=== PATIENT | female | born 1945 | race Caucasian/White ===

== ENCOUNTER → 2016-09-16 | Outpatient (CLI) | payer MEDICARE, MEDICAID ==
[~2016-09-16] MED LIST: ASP81TEC PO; ASPI325T4 PO; ATR20T PO; CALCIUM; GLIM2TAB PO; GLYB5TAB6 PO; GLYBURIDE; HYDR-757 PO; LECITHIN; LIPITOR; LISI10TA PO; METF500T8 PO; METFORMIN; METO25TA2 PO; MTF500T PO; ONDAN4ODT SL; ROSU10TA12 PO
--- NOTE | 2016-09-16 13:54 | Diagnostic Imaging Report ---
EXAMINATION: Two views of the right hip. INDICATION: Right hip pain. FINDINGS: There is subchondral sclerosis seen and mild joint space narrowing in the right hip, compatible with osteoarthritis. No fracture or dislocation. No radiopaque foreign body. Mild sclerotic lesions in the right SI joint are also seen. IMPRESSION: Mild right hip osteoarthritis. Dictated by: Dictated on workstation # [id number]
== END ==
LOC: RAD 10:36
PROVIDERS: ATTEND Family Medicine
DX: M25.551 Pain in right hip (principal); M16.11 Unilateral primary osteoarthritis, right hip
CPT/HCPCS: 73502

== ENCOUNTER → 2016-12-16 | Outpatient (CLI) | payer MEDICARE, MEDICAID ==
[~2016-12-16] MED LIST changes: +ASPI-808 PO; +ATOR10TA66 PO; +CATHETER FLUSH 10 ML SYR IV PRN; +DICL75TA2 PO; +IOHEXOL 350 MG/ML 100 ML (OMNIPAQUE 350) VIAL IV ONE; +LISI-552 PO; +LISI10TA2 PO; +METF500T4 PO; +METO-333 PO; +NS 100 ML (IVPB) BAG IV ONE; +OMEP40CA36 PO; +ONDA4TAB11 PO; +SUCR1TAB36 PO; +TRAM50TA2 PO
[2016-12-16 09:53] LABS: BLOOD UREA NITROGEN 15 MG/DL (7-18); BUN/CREATININE RATIO 17; CREATININE SERUM 0.88 MG/DL (0.60-1.30); GFR ESTIMATED > 60
--- NOTE | 2016-12-16 20:32 | Diagnostic Imaging Report ---
INDICATION: History of carotid stenosis and endarterectomy. TECHNIQUE: Post IV contrast-enhanced CT angio neck performed with multiplanar and 3D reconstructions. COMPARISON: None. FINDINGS: The branching pattern of the great vessels appear normal. The thoracic aortic arch is patent and nonaneurysmal. There is very mild eccentric calcified plaque at the innominate artery without luminal stenosis. The subclavians appeared patent and unremarkable, bilaterally. The bilateral vertebrals are patent and nonfocal, the left dominant vessel the right somewhat small but nonfocal. The origin of the right internal carotid artery is 4.8 cm diameter, however, just immediately beyond its origin it focally narrows to 2.1 mm transverse diameter with a stenosis of >70%. The remaining right cervical internal carotid is very tortuous but otherwise nonfocal. On the left is mixed soft and hard plaque at the carotid bulb and bifurcation. The left cervical internal carotid reveals no evidence for hemodynamically significant degree of stenosis. Acquisitions were carried out through the [place] with no focal intracranial occlusion or hemodynamically significant stenosis. IMPRESSION: 1. Likely 70% stenosis focally proximal right ICA just beyond its origin left-sided carotid plaque mild and without stenosis both cervical vertebrals are very tortuous but otherwise negative. The vertebrals are unremarkable. 2. Not mentioned above, there are multiple bilateral thyroid nodules on the right, the largest nodule or aggregate of nodules is 1.7 cm. Masses measuring larger on ultrasound of 2012 of the thyroid were noted. Dictated by: Dictated on workstation # [id number]
== END ==
LOC: RAD 09:14
PROVIDERS: ATTEND Internal Medicine Cardiovascular Disease
DX: I65.21 Occlusion and stenosis of right carotid artery (principal); E04.2 Nontoxic multinodular goiter
CPT/HCPCS: 36415; 70498; 82565; 84520

== ENCOUNTER → 2017-01-22 | Outpatient (CLI) | payer MEDICARE, MEDICAID ==
[~2017-01-22] MED LIST changes: -ASPI-808 PO; -ATOR10TA66 PO; -CATHETER FLUSH 10 ML SYR IV PRN; -DICL75TA2 PO; -IOHEXOL 350 MG/ML 100 ML (OMNIPAQUE 350) VIAL IV ONE; -LISI-552 PO; -LISI10TA2 PO; -METF500T4 PO; -METO-333 PO; -NS 100 ML (IVPB) BAG IV ONE; -OMEP40CA36 PO; -ONDA4TAB11 PO; -SUCR1TAB36 PO; -TRAM50TA2 PO
--- NOTE | 2017-01-25 13:48 | Diagnostic Imaging Report ---
EXAMINATION: Bilateral screening mammogram 2D views with tomosynthesis. The current study was also evaluated with a Computer Aided Detection (CAD) system. INDICATION: Screening. PERSONAL HISTORY: No current complaints stated on the questionnaire. COMPARISON: 01/21/2016. FINDINGS: The breasts are composed of scattered fibroglandular densities. There are benign-appearing calcifications seen. Allowing for technique and positional differences, no suspicious change is seen. IMPRESSION: No significant change. ACR BI-RADS Category 2: Benign findings. Result letter will be mailed to the patient. Note: At least 10% of breast cancer is not imaged by mammography. Dictated by: Dictated on workstation # [id number]
== END ==
LOC: RAD 09:55
PROVIDERS: ATTEND Family Medicine
DX: Z12.31 Encounter for screening mammogram for malignant neoplasm of breast (principal)
CPT/HCPCS: 77067

== ENCOUNTER 2017-02-16 05:37 | Outpatient (CLI) | payer MEDICARE, MEDICAID ==
[~2017-02-16] VITALS: Ht 152.4 cm; Wt 66.7 kg
[~2017-02-16 05:37] MED LIST changes: +OMEP40CA36 PO; +ONDA4TAB11 PO; +SUCR1TAB36 PO
[2017-02-16] MEDS ORDERED: OMEP40CA36 PO (11:24)
[2017-02-16] MEDS ORDERED: DICL75TA2 PO (11:24)
[2017-02-16] MEDS ORDERED: SUCR1TAB36 PO (11:24)
[2017-02-16] MEDS ORDERED: LISI10TA2 PO (11:24)
[2017-02-16] MEDS ORDERED: LISI-552 PO (11:24)
[2017-02-16] MEDS ORDERED: METF500T4 PO (11:24)
[2017-02-16] MEDS ORDERED: TRAM50TA2 PO (11:24)
[2017-02-16] MEDS ORDERED: ASPI-808 PO (11:24)
[2017-02-16] MEDS ORDERED: ONDA4TAB11 PO (11:24)
[2017-02-16] MEDS ORDERED: ATOR10TA66 PO (11:24)
[2017-02-16] MEDS ORDERED: METO-333 PO (11:24)
[2017-02-16] MEDS ORDERED: GLIM2TAB PO (11:24)
== END 2017-02-16 11:26 ==
LOC: PREOP 05:37
PROVIDERS: ATTEND Surgery
DX: Z01.818 Encounter for other preprocedural examination (principal); R10.13 Epigastric pain

== ENCOUNTER 2017-02-22 12:11 | Day surgery (SDC) | payer MEDICARE, MEDICAID ==
[~2017-02-22] VITALS: Ht 152.4 cm; Wt 66.7 kg
[~2017-02-22 12:11] MED LIST changes: +ASPI-808 PO; +ATOR10TA66 PO; +DICL75TA2 PO; +LISI-552 PO; +LISI10TA2 PO; +METF500T4 PO; +METO-333 PO; +NS IV 500 ML 500 ML ONE; +TRAM50TA2 PO
[2017-02-22 12:29] VITALS: BP 180/71
[2017-02-22] MEDS ORDERED: MIDAZOLAM 2 MG/2 ML (VERSED) VIAL IVP PRN (13:15)
[2017-02-22] MEDS ORDERED: NS IV 500 ML 500 ML IV SCH (13:15)
--- NOTE | 2017-02-22 13:36 | Conscious Sedation/ASA ---
Conscious Sedation Pre-Proced Time Reviewed: 13:36 ASA Class: 2 Airway Mallampati Classification: ([place] appropriate class) I. II. III, IV Lungs Heart ASA score ASA 1: a normal healthy patient ASA 2: a patient with a mild systemic disease (mid diabetes, controlled hypertension, obesity ASA 3: a patient with a severe systemic disease that limits activity (angina , COPD, prior Myocardial infarction) ASA 4: a patient with an incapacitating disease that is a constant threat to life (CHF, renal failure) ASA 5: a moribund patient not expected to survive 24 hrs. (ruptured aneurysm) ASA 6: a declared brain patient whose organs are being harvested. For emergent operations, add the letter E after the classification Grade 1 Sedation Plan: Discussed options with patient/fam Note The patient is an appropriate candidate to undergo the planned procedure, sedation, and anesthesia. The patient immediately re-assessed prior to indication. TIFFANY YOU MD Feb 22, 2017 1:36 pm
[2017-02-22] MEDS ORDERED: fentaNYL INJECTION 100 MCG/2 ML AMP ONE (14:01)
[2017-02-22] MEDS ORDERED: MIDAZOLAM 2 MG/2 ML (VERSED) VIAL ONE (14:01)
[2017-02-22] MEDS ORDERED: HURRICAINE EXT TUBE (BENZOCAINE) ONE (14:01)
[2017-02-22] MEDS: fentaNYL INJECTION 100 MCG/2 ML AMP IVP PRN ×2 (14:08→14:15)
--- NOTE | 2017-02-22 14:22 | Endo Procedure Record ---
Endo Procedure Report Date of Procedure Feb 22, 2017 Surgeon (s) TIFFANY YOU MD Post Procedure/Op Diagnosis chronic ulcer at the duodenal bulb Procedure Performed EGD with antral biopsy for H. pylori Description of Procedure Anesthesia Type: Conscious Sedation Specimen(s) collected/removed antral mucosa for H. pylori Description of the Procedure indication for procedure: This lady presented with acute epigastric pain and was found to have a sealed duodenal ulcer by CT scan. She returned today for endoscopic evaluation. Informed consent was obtained after reviewing the procedure in detail. Description of procedure: She was placed in left lateral decubitus position and her vital signs were monitored. Conscious sedation was achieved using Versed and fentanyl. The flexible gastroscope was introduced down the esophagus, past the stomach, into the proximal duodenum. Findings: Esophagus: Normal Stomach: Mild distal gastritis. Biopsy for H. pylori was obtained. Duodenal: Chronic ulcer about 5 mm in diameter with slough at the base, found that the bulb. Photodocumentation was obtained. She tolerated the procedure well and was taken back to the nursing area in a stable condition. Impression: Epigastric pain. Chronic duodenal ulcer. Helicobacter status pending. We will treat conservatively. Copies To: ALLI CASTILLO XAVIER M MD Feb 22, 2017 2:22 pm
--- NOTE | 2017-02-22 14:23 | Discharge Inst-Simple/Standard ---
Discharge Inst-Standard Discharge Medications New, Converted or Re-Newed RX: Other Patient Instructions/Follow Up Plan of Care/Instructions/FU: follow-up with her primary. To avoid nonsteroidals Activity as Tolerated: Yes Discharge Diet: No Restrictions TIFFANY YOU MD Feb 22, 2017 2:23 pm
[2017-02-22 14:30] VITALS: BP 144/70
[2017-02-22] MEDS ORDERED: HURRICAINE EXT TUBE (BENZOCAINE) XX ONE (14:45)
[2017-02-22 15:00] VITALS: BP 156/75
[2017-02-22 15:10] VITALS: BP 156/75
== END 2017-02-22 15:10 | disposition home or self-care (01) ==
LOC: ENDO 12:11
PROVIDERS: ATTEND Surgery
DX: K26.9 Duodenal ulcer, unspecified as acute or chronic, without hemorrhage or perforation (principal); K29.70 Gastritis, unspecified, without bleeding; I10 Essential (primary) hypertension; E78.2 Mixed hyperlipidemia; E04.1 Nontoxic single thyroid nodule; I65.23 Occlusion and stenosis of bilateral carotid arteries; E11.9 Type 2 diabetes mellitus without complications; Z82.49 Family history of ischemic heart disease and other diseases of the circulatory system; Z79.899 Other long term (current) drug therapy

== ENCOUNTER 2017-03-16 15:09 | Emergency (ER) | payer MEDICARE, MEDICAID ==
[~2017-03-16] VITALS: Ht 152.4 cm; Wt 67.6 kg
[~2017-03-16 15:09] MED LIST changes: -NS IV 500 ML 500 ML ONE
[2017-03-16] MEDS ORDERED: OXYMETAZOLINE (AFRIN) 0.05% NA 15 ML BTL ONE (15:36)
[2017-03-16] MEDS ORDERED: LECI12002 PO (15:36)
[2017-03-16] MEDS ORDERED: CALC-6 PO (15:36)
[2017-03-16] MEDS ORDERED: MULT-974 PO (15:36)
--- NOTE | 2017-03-16 16:37 | ED EENT ---
History of Present Illness General Chief Complaint: Nasal Problems Stated Complaint: NOSE BLEED Nursing Triage Note: PT REPORTS HAVING NOSEBLEED LAST EVENING AND ONE THIS AM. THEN THIS ONE THAT HAS NOT STOPPED DESPITE USING PRESSURE OR ICE. Source: patient Exam Limitations: no limitations History of Present Illness Time seen by provider: 15:20 Initial Comments This 71 year old woman presents with complaints of nose bleed last night and again today. Ice and pressure at home have not resolved the bleeding. She has some oozing active bleeding now. She is on full dose aspirin. Allergies and Home Medications Allergies Uncoded Allergies: EGGS (Allergy, Mild, 01/25/12) Home Medications Aspirin 325 Mg Tablet, 325 MG PO DAILY, (Reported) Atorvastatin Calcium 10 Mg Tablet, 10 MG PO HS, (Reported) Calcium Carbonate/Vitamin D3 1 Each Tablet, 1 EACH PO DAILY, (Reported) Glimepiride 2 Mg Tablet, 2 MG PO DAILY, (Reported) Lecithin 1,200 Mg Capsule, 1,200 MG PO DAILY, (Reported) Lisinopril 20 Mg Tablet, 20 MG PO DAILY, (Reported) Metformin HCl 500 Mg Tablet, 1,000 MG PO BID, (Reported) Metoprolol Tartrate 25 Mg Tablet, 25 MG PO BID, (Reported) Multivitamin 1 Each Tablet, 1 EACH PO DAILY, (Reported) Omeprazole 40 Mg Capsule.dr, 40 MG PO DAILY, (Reported) Ondansetron 4 Mg Tab.rapdis, 4 MG PO Q4H PRN for NAUSEA/VOMITING-1ST LINE, ( Reported) Sucralfate 1 Gm Tablet, 1 GM PO QID, (Reported) Tramadol HCl 50 Mg Tablet, 50 MG PO BID PRN for PAIN-MILD TO MODERATE, (Reported ) Review of Systems Constitutional: no symptoms reported Eyes: No Symptoms Reported Ears: No Symptoms Reported Nose: see HPI Mouth: no symptoms reported Throat: no symptoms reported Skin: no symptoms reported Neurological: No Symptoms Reported Hematologic/Lymphatic: See HPI Past Hipmdux-Vylwze-Nsbxgq Hx Patient Social History Alcohol Use: Denies Use Recreational Drug Use: No Smoking Status: Former Smoker Type Used: Cigarettes Former Smoker, Quit: Feb 16, 1969 2nd Hand Smoke Exposure: No Recent Foreign Travel: No Contact w/Someone Who Travel: No Recent Infectious Disease Expo: No Recent Hopitalizations: No Physical Abuse: No Sexual Abuse: No Mistreated: No Fear: No Immunizations Up To Date Tetanus Booster (TDap): More than 5yrs Date of Pneumonia Vaccine: Apr 05, 2011 Seasonal Allergies Seasonal Allergies: No Surgeries History of Surgeries: No Respiratory History of Respiratory Disorde: No Cardiovascular History of Cardiac Disorders: Yes Cardiac Disorders: High Cholesterol, Hypertension Neurological History of Neurological Disord: No Reproductive System : No Hx Reproductive Disorders: No Sexually Transmitted Disease: No HIV/AIDS: No Genitourinary History of Genitourinary Disor: No Gastrointestinal History of Gastrointestinal Di: Yes (EPIGASTRIC PAIN) Gastrointestinal Disorders: Gastroesophageal Reflux, Hiatal Hernia Musculoskeletal History of Musculoskeletal Dis: Yes Musculoskeletal Disorders: Arthritis Endocrine History of Endocrine Disorders: Yes Endocrine Disorders: Diabetes, 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 Hearing Impairment: Denies Cancer History of Cancer: No Psychosocial History of Psychiatric Problem: No Suicide Risk Score: 1 Integumentary History of Skin or Integumenta: No Blood Transfusions History of Blood Disorders: No Adverse Reaction to a Blood Tr: No Family Medical History Family Medial History: Arthritis G8 SISTER Diabetes mellitus G8 BROTHER FH: skin cancer 19 MOTHER FH: uterine cancer 19 MOTHER Respiratory disorder G8 SISTER Physical Exam Vital Signs Vital Sign - Last 12Hours 03/16/17 15:42 Temp 98.1 Pulse 83 Resp 18 B/P (MAP) 147/67 (93) Pulse Ox 95 O2 Delivery Room Air General Appearance: WD/WN, no apparent distress Nose: active bleeding (Slight oozing left nostril) Neck: normal inspection Cardiovascular: regular rate, rhythm, no edema, no murmur Respiratory: lungs clear, normal breath sounds, no respiratory distress Neurologic/Psychiatric: size stamper II-XII nml as tested, no motor/sensory deficits, alert, normal mood/affect, oriented x 3 Skin: normal color, warm/dry Progress/Results/Core Measures Results/Orders My Orders Vital Signs/I&O Blood Pressure Mean: 93 Progress Note : Progress Note 4 sprays of Afrin were applied to each nostril followed by direct pressure which resolved the bleeding. Departure Impression Impression: Primary Impression: Epistaxis Disposition: 01 HOME, SELF-CARE Condition: Improved Departure-Patient Inst. Decision time for Depature: 16:32 Referrals: ALLI CASTILLO DO (PCP/Family) Primary Care Physician Patient Instructions: Nosebleeds (DC) Add. Discharge Instructions: Avoid disrupting the clot in your nose by blowing your nose or putting anything in your nose for at least 24 hours. If bleeding returns, squirt 4 sprays of Afrin in each side and apply direct pressure for 20 minutes. If bleeding does not resolve, return to the emergency room. Skip your aspirin doses for the next 3 days. Consider using a cool mist humidifier in your home and especially in your bedroom at night to reduce dryness in your nose. All discharge instructions reviewed with patient and/or family. Voiced understanding. DANILO SALGADO MD Mar 16, 2017 16:37
[2017-03-16 16:52] VITALS: BP 160/71
[2017-03-16] MEDS ORDERED: OXYMETAZOLINE (AFRIN) 0.05% NA 15 ML BTL SCH (21:00)
== END 2017-03-16 16:52 | disposition home or self-care (01) ==
LOC: EDUNIT# 15:09 → ER 15:10
DX: R04.0 Epistaxis (principal); E78.00 Pure hypercholesterolemia, unspecified; I10 Essential (primary) hypertension; K21.9 Gastro-esophageal reflux disease without esophagitis; M19.90 Unspecified osteoarthritis, unspecified site; E11.9 Type 2 diabetes mellitus without complications; Z80.49 Family history of malignant neoplasm of other genital organs; Z80.8 Family history of malignant neoplasm of other organs or systems; Z87.19 Personal history of other diseases of the digestive system; Z79.82 Long term (current) use of aspirin; Z79.84 Long term (current) use of oral hypoglycemic drugs; Z87.891 Personal history of nicotine dependence
CPT/HCPCS: 99283

== ENCOUNTER → 2017-11-09 | Outpatient (CLI) | payer MEDICARE, MEDICAID ==
[~2017-11-09] MED LIST changes: +CALC-6 PO; +LECI12002 PO; -METF500T4 PO; +METF500T5 PO; +MULT-974 PO
--- NOTE | 2017-11-09 12:45 | Diagnostic Imaging Report ---
PROCEDURE: US Thyroid. TECHNIQUE: Multiple Real-time grayscale images were obtained of the thyroid in various projections. INDICATION: Multinodular goiter. FINDINGS: The right lobe of the thyroid measures 4.4 x 2.0 x 1.9 cm and the left lobe measures 4.3 x 1.7 x 1.5 cm. There are multiple circumscribed hypoechoic nodules in both lobes of the thyroid gland. The nodules on the left are all less than 1 cm in size. The largest nodule is in the upper pole of the right lobe measuring 2.3 x 1.6 x 2.0 cm. A smaller nodule is seen in the lower pole of the right lobe measuring 1.2 x 1.2 x 1.2 cm. No definite microcalcifications are seen. IMPRESSION: Bilateral thyroid nodules, largest in the upper pole on the right. Fine-needle aspiration of the dominant nodule could be performed. Dictated by: Dictated on workstation # [id number]
== END ==
LOC: RAD 10:05
PROVIDERS: ATTEND Internal Medicine Endocrinology, Diabetes & Metabolism
DX: E04.2 Nontoxic multinodular goiter (principal)
CPT/HCPCS: 36415; 76536; 84443

== ENCOUNTER → 2017-12-28 | Outpatient (CLI) | payer MEDICARE, MEDICAID ==
[~2017-12-28] VITALS: Ht 152.4 cm; Wt 67.6 kg
[~2017-12-28] MED LIST changes: +LIDOCAINE 1% INJ 20 ML 20 ML VIAL INJ ONE; +METF-397 PO; -METF500T5 PO
--- NOTE | 2017-12-30 14:59 | Diagnostic Imaging Report ---
INDICATION: Thyroid mass. TECHNIQUE AND FINDINGS: After explaining the risks, benefits and alternatives of the procedure to the patient, written consent was obtained. The patient's neck was prepped and draped utilizing maximal sterile barrier technique. Local anesthesia was obtained with 2% lidocaine. Three fine-needle aspirations were performed of the dominant nodule in the right lobe of the thyroid. Following the procedure, the needle was removed and adequate hemostasis was obtained. The patient tolerated the procedure well and left the department in stable condition. IMPRESSION: Successful ultrasound-guided right thyroid biopsy, as described. Dictated by: Dictated on workstation # [id number]
== END ==
LOC: RAD 12:48
PROVIDERS: ATTEND Internal Medicine Endocrinology, Diabetes & Metabolism
DX: E04.2 Nontoxic multinodular goiter (principal)
CPT/HCPCS: 76942; 88173; 88305

== ENCOUNTER → 2018-02-08 | Outpatient (CLI) | payer MEDICARE, MEDICAID ==
[~2018-02-08] MED LIST changes: -LIDOCAINE 1% INJ 20 ML 20 ML VIAL INJ ONE
--- NOTE | 2018-02-08 19:05 | Diagnostic Imaging Report ---
INDICATION: Routine screening. Comparison is made with prior mammograms from 01/22/2017 and 01/21/2016. 2-D and 3-D bilateral screening mammography was performed with computer-aided detection (CAD) system. FINDINGS: Scattered fibroglandular densities are identified bilaterally. There are benign calcifications scattered throughout both breasts. No mass or malignant-appearing microcalcifications are seen. The axillae are unremarkable. IMPRESSION: No mammographic features suspicious for malignancy are identified. ACR BI-RADS Category 2: Benign findings. Result letter will be mailed to the patient. Note: At least 10% of breast cancer is not imaged by mammography. Dictated by: Dictated on workstation # [id number]
== END ==
LOC: RAD 10:04
PROVIDERS: ATTEND Family Medicine
DX: Z12.31 Encounter for screening mammogram for malignant neoplasm of breast (principal)
CPT/HCPCS: 77067

== ENCOUNTER → 2019-04-03 | Outpatient (CLI) | payer MEDICAID, MEDICARE ==
--- NOTE | 2019-04-03 13:19 | Diagnostic Imaging Report ---
INDICATION: Routine screening. Comparison is made with prior mammogram 02/08/2018 and 01/22/2017. 2-D and 3-D bilateral screening mammography was performed with CAD. Scattered fibroglandular densities are identified bilaterally. There are benign calcifications scattered throughout both breasts. No new mass or malignant appearing microcalcifications are seen. Axillae are unremarkable. IMPRESSION: BI-RADS Category 2 No mammographic features suspicious for malignancy are identified. ACR BI-RADS Category 2: Benign findings. Result letter will be mailed to the patient. Note: At least 10% of breast cancer is not imaged by mammography. Dictated by: Dictated on workstation # [id number]
== END ==
LOC: RAD 10:38
PROVIDERS: ATTEND Family Medicine
DX: Z12.31 Encounter for screening mammogram for malignant neoplasm of breast (principal)
CPT/HCPCS: 77067

== ENCOUNTER → 2019-05-08 | Outpatient (CLI) | payer MEDICARE, MEDICAID ==
[~2019-05-08] MED LIST changes: +GLIM2TAB2 PO; +OMEP40CA27 PO; -OMEP40CA36 PO; -TRAM50TA2 PO; +TRM50T PO
== END ==
LOC: CARD 10:16
PROVIDERS: ATTEND Internal Medicine Cardiovascular Disease
DX: E78.2 Mixed hyperlipidemia (principal); I10 Essential (primary) hypertension; R55 Syncope and collapse; I65.29 Occlusion and stenosis of unspecified carotid artery; I34.0 Nonrheumatic mitral (valve) insufficiency
CPT/HCPCS: 93306

== ENCOUNTER → 2019-05-17 | Outpatient (CLI) | payer MEDICARE, MEDICAID ==
[~2019-05-17] VITALS: Ht 152 cm; Wt 73.0 kg
[~2019-05-17] MED LIST changes: +REGADENOSON 0.4 MG/5 ML SYR (LEXISCAN) IV ONE
[2019-05-17] MEDS: CATHETER FLUSH 10 ML SYR IV PRN ×2 (12:21→13:13)
[2019-05-17 13:11] VITALS: BP 143/53
--- NOTE | 2019-05-17 19:22 | STRESS TEST ---
DATE OF SERVICE: 05/17/2019 LEXISCAN MYOVIEW STRESS TEST REPORT REFERRING PHYSICIAN: Gautam Farnsworth DO Baseline heart rate is 68, baseline blood pressure 175/73. Baseline EKG is sinus rhythm with no ischemic changes. In summary, the patient was injected with 10.3 mCi of technetium-99 Myoview and the resting images were obtained. Then, the patient received 0.4 mg of Lexiscan followed by 30.7 mCi of technetium-99 Myoview. Throughout the test, there were no EKG changes. The resting and stress images were reviewed and compared in the short axis, horizontal long axis, and vertical long axis views. Review of the images showed good radiotracer uptake, no significant ischemia or infarction was seen. SSS is 4, SDS 1. TID value 1.13. On the gated images, the left ventricle appeared to be normal size with normal contractility. Calculated ejection fraction 77%. CONCLUSION: 1. The patient tolerated Lexiscan well. 2. No significant ischemia or infarction on SPECT images. 3. Normal left ventricular size with normal contractility. Calculated ejection fraction 77%. Job ID: [id number] DocumentID: [id number] Dictated Date: 05/17/2019 15:15:15 Space Control Agent Date: 05/17/2019 19:21:36 Dictated By: OLIVER LEE MD
== END ==
LOC: CARD 12:11
PROVIDERS: ATTEND Internal Medicine Cardiovascular Disease
DX: I10 Essential (primary) hypertension (principal); E78.2 Mixed hyperlipidemia; R55 Syncope and collapse; I65.29 Occlusion and stenosis of unspecified carotid artery
CPT/HCPCS: 78452; 93017

== ENCOUNTER → 2019-09-19 | Outpatient (CLI) | payer MEDICARE ==
[~2019-09-19] MED LIST changes: -GLIM2TAB2 PO; +GLIM2TAB4 PO; -REGADENOSON 0.4 MG/5 ML SYR (LEXISCAN) IV ONE
[2019-09-19 09:17] LABS: HEMOGLOBIN 12.7 G/DL (11.5-16.0); MEAN PLATELET VOLUME 9.1 FL (7.4-10.4); WHITE BLOOD COUNT 6.2 10^3/uL (4.3-11.0)
[2019-09-19 09:26] LABS: BILIRUBIN,URINE NEGATIVE (NEGATIVE); CLARITY,URINE CLEAR; COLOR,URINE YELLOW; GLUCOSE, URINE (UA) NEGATIVE (NEGATIVE); KETONES,URINE NEGATIVE (NEGATIVE); LEUKOCYTE ESTERASE ,URINE 1+ (NEGATIVE); NITRITE,URINE NEGATIVE (NEGATIVE); PROTEIN,URINE NEGATIVE (NEGATIVE)
[2019-09-19 09:36] LABS: BACTERIA,URINE NEGATIVE /HPF; SQUAMOUS EPITHELIAL CELL,UR RARE /HPF; WBC,URINE RARE /HPF
[2019-09-19 09:41] LABS: CREATININE SERUM 1.04 MG/DL (0.60-1.30); POTASSIUM 4.6 MMOL/L (3.6-5.0)
[2019-09-19 09:42] LABS: ALBUMIN 4.3 GM/DL (3.2-4.5); BILIRUBIN,TOTAL 0.4 MG/DL (0.1-1.0); TOTAL PROTEIN 7.5 GM/DL (6.4-8.2)
== END ==
LOC: LAB 08:50
PROVIDERS: ATTEND Family Medicine
DX: E11.9 Type 2 diabetes mellitus without complications (principal); E78.5 Hyperlipidemia, unspecified
CPT/HCPCS: 36415; 80053; 80061; 81000; 83036; 85027

== ENCOUNTER → 2019-11-10 | Outpatient (CLI) | payer MEDICAID, MEDICARE ==
--- NOTE | 2019-11-10 14:38 | Diagnostic Imaging Report ---
PROCEDURE: US Thyroid. TECHNIQUE: Multiple real-time grayscale images were obtained of the thyroid in various projections. INDICATION: Multinodular goiter. COMPARISON: Correlation is made with prior thyroid ultrasound from 11/09/2017. FINDINGS: Right lobe of the thyroid measures 4.5 x 2.1 x 1.9 cm and the left lobe measures 5.3 x 1.9 x 1.5 cm. A dominant nodule in the upper pole right lobe measures 2.0 x 1.1 x 2.0 cm. This compares with 2.3 x 1.6 x 2.0 cm on prior. Nodule in the mid to lower pole right lobe measures 1.9 x 1.4 x 1.4 cm. This compares with 1.2 x 1.2 x 1.2 cm on prior. Nodule in the lower pole of left lobe measures 2.1 x 1.4 x 1.8 cm. This is not definitely seen on prior thyroid ultrasound. IMPRESSION: 1. Stable right upper pole right lobe thyroid nodule. 2. Enlarging right lower pole nodule since prior study from two years earlier. In addition, there has been development of a nodule in the lower pole left lobe. Consideration could be given to performance of fine needle aspiration. Dictated by: Dictated on workstation # [id number]
== END ==
LOC: RAD 10:36
PROVIDERS: ATTEND Internal Medicine Endocrinology, Diabetes & Metabolism
DX: E04.2 Nontoxic multinodular goiter (principal)
CPT/HCPCS: 76536

== ENCOUNTER → 2020-01-18 | Outpatient (CLI) | payer MEDICARE ==
[2020-01-18 08:45] LABS: HEMOGLOBIN 13.4 g/dL (11.5-16.0); MEAN PLATELET VOLUME 9.3 fL (9.0-12.2); WHITE BLOOD COUNT 5.9 10^3/uL (4.3-11.0)
[2020-01-18 09:06] LABS: ALBUMIN 4.5 GM/DL (3.2-4.5); BILIRUBIN,TOTAL 0.5 MG/DL (0.1-1.0); CALCIUM 9.8 MG/DL (8.5-10.1); CREATININE SERUM 1.02 MG/DL (0.60-1.30); POTASSIUM 4.7 MMOL/L (3.6-5.0)
== END ==
LOC: LAB 08:12
PROVIDERS: ATTEND Family Medicine
DX: Z01.89 Encounter for other specified special examinations (principal)
CPT/HCPCS: 36415; 80053; 80061; 83036; 85027

== ENCOUNTER → 2020-03-22 | Outpatient (CLI) | payer MEDICARE ==
[~2020-03-22] MED LIST changes: -CALC-6 PO; +CALC1TAB84 PO
[2020-03-22 09:13] LABS: HEMOGLOBIN 12.2 g/dL (11.5-16.0); WHITE BLOOD COUNT 7.5 10^3/uL (4.3-11.0)
[2020-03-22 09:17] LABS: BILIRUBIN,URINE NEGATIVE (NEGATIVE); CLARITY,URINE CLEAR; COLOR,URINE YELLOW; GLUCOSE, URINE (UA) NEGATIVE (NEGATIVE); KETONES,URINE NEGATIVE (NEGATIVE); LEUKOCYTE ESTERASE ,URINE 1+ (NEGATIVE); NITRITE,URINE NEGATIVE (NEGATIVE); PH,URINE 8.5 (5-9); PROTEIN,URINE NEGATIVE (NEGATIVE)
[2020-03-22 09:30] LABS: BACTERIA,URINE FEW /HPF; RENAL EPITHELIAL CELLS,URINE 0-2 /HPF
[2020-03-22 09:36] LABS: BILIRUBIN,TOTAL 0.4 MG/DL (0.1-1.0); CREATININE SERUM 1.16 MG/DL (0.60-1.30); POTASSIUM 5.5 MMOL/L (3.6-5.0)
== END ==
LOC: LAB 08:57
PROVIDERS: ATTEND Family Medicine
DX: E78.5 Hyperlipidemia, unspecified (principal); E11.9 Type 2 diabetes mellitus without complications
CPT/HCPCS: 36415; 80053; 80061; 81000; 83036; 85027; 87088

== ENCOUNTER → 2020-04-12 | Outpatient (CLI) | payer MEDICARE ==
[2020-04-12 09:02] LABS: CALCIUM 9.4 MG/DL (8.5-10.1); CREATININE SERUM 1.16 MG/DL (0.60-1.30); POTASSIUM 4.4 MMOL/L (3.6-5.0)
== END ==
LOC: LAB 08:32
PROVIDERS: ATTEND Family Medicine
DX: N28.9 Disorder of kidney and ureter, unspecified (principal); E11.9 Type 2 diabetes mellitus without complications
CPT/HCPCS: 36415; 80048

== ENCOUNTER → 2020-05-08 | Outpatient (CLI) | payer MEDICARE ==
[2020-05-08 09:19] LABS: CALCIUM 9.4 MG/DL (8.5-10.1); CREATININE SERUM 1.12 MG/DL (0.60-1.30); POTASSIUM 4.5 MMOL/L (3.6-5.0)
== END ==
LOC: LAB 08:37
PROVIDERS: ATTEND Family Medicine
DX: E11.9 Type 2 diabetes mellitus without complications (principal); N28.9 Disorder of kidney and ureter, unspecified
CPT/HCPCS: 36415; 80048

== ENCOUNTER → 2020-06-27 | Outpatient (CLI) | payer MEDICARE ==
[~2020-06-27] MED LIST changes: -LISI-552 PO; -LISI10TA2 PO; +LISI10TA25 PO; +LISI20TA26 PO
[2020-06-27 08:52] LABS: CALCIUM 9.4 MG/DL (8.5-10.1); CREATININE SERUM 1.26 MG/DL (0.60-1.30); POTASSIUM 4.6 MMOL/L (3.6-5.0)
== END ==
LOC: LAB 08:13
PROVIDERS: ATTEND Family Medicine
DX: E11.9 Type 2 diabetes mellitus without complications (principal); N28.9 Disorder of kidney and ureter, unspecified
CPT/HCPCS: 36415; 80048

== ENCOUNTER → 2020-07-24 | Outpatient (CLI) | payer MEDICARE ==
[2020-07-24 09:01] LABS: CALCIUM 9.5 MG/DL (8.5-10.1); CREATININE SERUM 1.07 MG/DL (0.60-1.30); POTASSIUM 4.5 MMOL/L (3.6-5.0)
== END ==
LOC: LAB 08:13
PROVIDERS: ATTEND Family Medicine
DX: E11.9 Type 2 diabetes mellitus without complications (principal); N28.9 Disorder of kidney and ureter, unspecified
CPT/HCPCS: 36415; 80048

== ENCOUNTER → 2020-09-18 | Outpatient (CLI) | payer MEDICARE ==
[~2020-09-18] MED LIST changes: -LECI12002 PO; +[UNRECOGNIZED DRUG - CODE] PO
[2020-09-18 08:51] LABS: CALCIUM 9.9 MG/DL (8.5-10.1); CREATININE SERUM 1.03 MG/DL (0.60-1.30); POTASSIUM 4.5 MMOL/L (3.6-5.0)
== END ==
LOC: LAB 08:11
PROVIDERS: ATTEND Family Medicine
DX: E11.9 Type 2 diabetes mellitus without complications (principal); N28.9 Disorder of kidney and ureter, unspecified
CPT/HCPCS: 36415; 80048

== ENCOUNTER → 2020-11-04 | Outpatient (CLI) | payer MEDICARE ==
[~2020-11-04] MED LIST changes: -OMEP40CA27 PO; +OMEP40CA6 PO
--- NOTE | 2020-11-04 13:41 | Diagnostic Imaging Report ---
PROCEDURE: US Thyroid. TECHNIQUE: Multiple real-time grayscale images were obtained of the thyroid in various projections. INDICATION: Multiple thyroid nodules. Follow-up. COMPARISON: Comparison is made with a prior study from 11/10/2019. FINDINGS: Both lobes measure approximately 2 x 5 cm. There is a 1.8 x 2.3 cm heterogeneous well-circumscribed nodule in the upper pole of the right lobe. 1.9 cm nodule in the lower pole of the right lobe. There is a 6 mm nodule present as well. There is a 1.2 cm heterogeneous nodule in the left lobe. There is 5 mm cyst present on the left. IMPRESSION: There are multiple bilateral nodules, similar to the 11/10/2019 study. Changes are likely related to multinodular goiter. These could be followed. Dictated by: Dictated on workstation # [id number]
== END ==
LOC: RAD 12:15
PROVIDERS: ATTEND Internal Medicine Endocrinology, Diabetes & Metabolism
DX: E04.2 Nontoxic multinodular goiter (principal)
CPT/HCPCS: 76536

== ENCOUNTER → 2020-11-13 | Outpatient (CLI) | payer MEDICARE ==
[2020-11-13 08:42] LABS: HEMATOCRIT 40 % (35-52); MEAN CORPUSCULAR HEMOGLOBIN 32 pg (25-34); MEAN CORPUSCULAR HGB CONC 33 g/dL (32-36); MEAN CORPUSCULAR VOLUME 100 fL (80-99); MEAN PLATELET VOLUME 9.2 fL (9.0-12.2); PLATELET COUNT 264 10^3/uL (130-400); WHITE BLOOD COUNT 6.7 10^3/uL (4.3-11.0)
[2020-11-13 09:03] LABS: ALBUMIN 3.9 GM/DL (3.2-4.5); BILIRUBIN,TOTAL 0.5 MG/DL (0.1-1.0); CALCIUM 9.9 MG/DL (8.5-10.1); CREATININE SERUM 1.14 MG/DL (0.60-1.30); POTASSIUM 4.6 MMOL/L (3.6-5.0); TOTAL PROTEIN 7.4 GM/DL (6.4-8.2)
== END ==
LOC: LAB 08:08
PROVIDERS: ATTEND Family Medicine
DX: I10 Essential (primary) hypertension (principal); N28.9 Disorder of kidney and ureter, unspecified
CPT/HCPCS: 36415; 80053; 80061; 83036; 85027

== ENCOUNTER → 2020-12-11 | Outpatient (CLI) | payer MEDICARE ==
[2020-12-11 08:43] LABS: POTASSIUM 5.1 MMOL/L (3.6-5.0)
[2020-12-11 08:44] LABS: CALCIUM 9.5 MG/DL (8.5-10.1)
[2020-12-11 08:48] LABS: CREATININE SERUM 1.16 MG/DL (0.60-1.30)
== END ==
LOC: LAB 08:08
PROVIDERS: ATTEND Family Medicine
DX: N28.9 Disorder of kidney and ureter, unspecified (principal); E11.9 Type 2 diabetes mellitus without complications
CPT/HCPCS: 36415; 80048

== ENCOUNTER → 2021-01-08 | Outpatient (CLI) | payer MEDICARE ==
[2021-01-08 08:49] LABS: CALCIUM 9.3 MG/DL (8.5-10.1); CREATININE SERUM 1.61 MG/DL (0.60-1.30); POTASSIUM 4.9 MMOL/L (3.6-5.0)
== END ==
LOC: LAB 08:15
PROVIDERS: ATTEND Family Medicine
DX: E11.9 Type 2 diabetes mellitus without complications (principal); N28.9 Disorder of kidney and ureter, unspecified
CPT/HCPCS: 36415; 80048

== ENCOUNTER → 2021-01-23 | Outpatient (CLI) | payer MEDICARE ==
[2021-01-23 08:40] LABS: CALCIUM 9.9 MG/DL (8.5-10.1); CREATININE SERUM 1.17 MG/DL (0.60-1.30); POTASSIUM 4.5 MMOL/L (3.6-5.0)
== END ==
LOC: LAB 08:08
PROVIDERS: ATTEND Family Medicine
DX: N28.9 Disorder of kidney and ureter, unspecified (principal); E11.9 Type 2 diabetes mellitus without complications
CPT/HCPCS: 36415; 80048

== ENCOUNTER → 2021-03-06 | Outpatient (CLI) | payer MEDICARE ==
[2021-03-06 08:49] LABS: CALCIUM 9.6 MG/DL (8.5-10.1); CREATININE SERUM 1.22 MG/DL (0.60-1.30); POTASSIUM 4.6 MMOL/L (3.6-5.0)
== END ==
LOC: LAB 08:12
PROVIDERS: ATTEND Family Medicine
DX: E11.9 Type 2 diabetes mellitus without complications (principal); N28.9 Disorder of kidney and ureter, unspecified
CPT/HCPCS: 36415; 80048

== ENCOUNTER → 2021-04-30 | Outpatient (CLI) | payer MEDICARE, MEDICAID ==
[2021-04-30 09:14] LABS: HEMATOCRIT 46 % (35-52); HEMOGLOBIN 14.7 g/dL (11.5-16.0); MEAN CORPUSCULAR HEMOGLOBIN 32 pg (25-34); MEAN CORPUSCULAR HGB CONC 32 g/dL (32-36); MEAN CORPUSCULAR VOLUME 98 fL (80-99); MEAN PLATELET VOLUME 9.3 fL (9.0-12.2); PLATELET COUNT 234 10^3/uL (130-400)
[2021-04-30 09:26] LABS: ALBUMIN 4.1 GM/DL (3.2-4.5); POTASSIUM 4.6 MMOL/L (3.6-5.0)
[2021-04-30 09:27] LABS: CALCIUM 9.3 MG/DL (8.5-10.1)
[2021-04-30 09:29] LABS: TOTAL PROTEIN 7.9 GM/DL (6.4-8.2)
[2021-04-30 09:31] LABS: BILIRUBIN,TOTAL 0.6 MG/DL (0.1-1.0)
[2021-04-30 09:33] LABS: CREATININE SERUM 1.23 MG/DL (0.60-1.30)
--- NOTE | 2021-04-30 11:50 | Diagnostic Imaging Report ---
INDICATION: Routine screening. Comparison is made with prior mammogram 04/03/2019 and 02/08/2018. 2-D and 3-D bilateral screening mammography was performed with CAD. Scattered fibroglandular densities are identified bilaterally. Benign calcifications are scattered throughout both breasts. No mass or malignant-appearing microcalcifications are seen. Axillae are unremarkable. IMPRESSION: No mammographic features suspicious for malignancy are identified. BI-RADS Category 2 ACR BI-RADS Category 2: Benign findings. Result letter will be mailed to the patient. Note: At least 10% of breast cancer is not imaged by mammography. Dictated by: Dictated on workstation # [id number]
== END ==
LOC: RAD 10:15
PROVIDERS: ATTEND Family Medicine
DX: Z12.31 Encounter for screening mammogram for malignant neoplasm of breast (principal); E11.9 Type 2 diabetes mellitus without complications; N28.9 Disorder of kidney and ureter, unspecified; I10 Essential (primary) hypertension
CPT/HCPCS: 36415; 77063; 77067; 80053; 80061; 83036; 85027

== ENCOUNTER → 2021-06-11 | Outpatient (CLI) | payer MEDICARE, MEDICAID ==
[2021-06-11 08:57] LABS: ALBUMIN 4.1 GM/DL (3.2-4.5)
[2021-06-11 08:58] LABS: CALCIUM 9.8 MG/DL (8.5-10.1)
[2021-06-11 08:59] LABS: TOTAL PROTEIN 7.4 GM/DL (6.4-8.2)
[2021-06-11 09:01] LABS: BILIRUBIN,TOTAL 0.5 MG/DL (0.1-1.0)
[2021-06-11 09:03] LABS: CREATININE SERUM 1.13 MG/DL (0.60-1.30)
== END ==
LOC: LAB 08:29
PROVIDERS: ATTEND Physician Assistant
DX: I10 Essential (primary) hypertension (principal); I65.29 Occlusion and stenosis of unspecified carotid artery; E78.2 Mixed hyperlipidemia; Z82.49 Family history of ischemic heart disease and other diseases of the circulatory system
CPT/HCPCS: 36415; 80053; 80061

== ENCOUNTER → 2021-06-11 | Outpatient (CLI) | payer MEDICARE, MEDICAID | LOC: LAB 08:25 | PROVIDERS: ATTEND Family Medicine | DX: N28.9 Disorder of kidney and ureter, unspecified (principal); E11.9 Type 2 diabetes mellitus without complications ==

== ENCOUNTER → 2021-08-07 | Outpatient (CLI) | payer MEDICARE, MEDICAID | LOC: LAB 08:06 | PROVIDERS: ATTEND Family Medicine | DX: E11.9 Type 2 diabetes mellitus without complications (principal); N28.9 Disorder of kidney and ureter, unspecified | CPT/HCPCS: 36415; 83036 ==

== ENCOUNTER → 2021-08-22 | Outpatient (CLI) | payer MEDICARE, MEDICAID | LOC: LAB 08:41 | PROVIDERS: ATTEND Nurse Practitioner Family | DX: E04.2 Nontoxic multinodular goiter (principal) | CPT/HCPCS: 36415; 84443 ==

== ENCOUNTER → 2021-10-02 | Outpatient (CLI) | payer MEDICARE, MEDICAID ==
[2021-10-02 08:59] LABS: CALCIUM 9.6 MG/DL (8.5-10.1); CREATININE SERUM 1.25 MG/DL (0.60-1.30); POTASSIUM 4.7 MMOL/L (3.6-5.0)
== END ==
LOC: LAB 08:15
PROVIDERS: ATTEND Family Medicine
DX: N28.9 Disorder of kidney and ureter, unspecified (principal)
CPT/HCPCS: 36415; 80048

== ENCOUNTER → 2021-10-30 | Outpatient (CLI) | payer MEDICARE, MEDICAID ==
[2021-10-30 09:09] LABS: CALCIUM 9.5 MG/DL (8.5-10.1); CREATININE SERUM 1.09 MG/DL (0.60-1.30); POTASSIUM 4.7 MMOL/L (3.6-5.0)
== END ==
LOC: LAB 08:34
PROVIDERS: ATTEND Family Medicine
DX: N28.9 Disorder of kidney and ureter, unspecified (principal); E11.9 Type 2 diabetes mellitus without complications
CPT/HCPCS: 36415; 80048

== ENCOUNTER → 2021-11-17 | Outpatient (CLI) | payer MEDICARE, MEDICAID ==
--- NOTE | 2021-11-17 16:41 | Diagnostic Imaging Report ---
PROCEDURE: US Thyroid. TECHNIQUE: Multiple real-time grayscale images were obtained of the thyroid in various projections. INDICATION: Follow-up thyroid nodules. COMPARISON: 11/04/2020. FINDINGS: Both thyroid lobes demonstrate smooth and homogenous background echotexture. Color flow Doppler demonstrates normal and symmetric vascularity bilaterally. The right lobe measures 5.0 cm in length, 2.2 cm AP, and 1.9 cm transverse. The left lobe measures 6.0 cm in length, 1.9 cm AP, and 1.4 cm transverse. The isthmus measures 0.5 cm. Dominant solid nodule is seen in the superior pole of the right lobe of the thyroid measuring 2.5 x 1.1 x 2.4 cm and demonstrating a heterogeneous internal echogenicity. The second largest solid nodule is in the inferior pole of the right lobe of the thyroid measuring 2.0 x 1.4 x 1.4 cm and demonstrating a similar heterogeneous internal echogenicity. Additional smaller subcentimeter thyroid nodules are seen bilaterally. IMPRESSION: 1. Interval increase in size in the dominant nodules in the right lobe of the thyroid. Based on size criteria and imaging characteristics, further evaluation with thyroid FNA is recommended for the largest nodule in the superior pole of the right lobe of the thyroid. Additional follow-up is recommended in 12 months. Dictated by: Dictated on workstation # [id number]
== END ==
LOC: RAD 11:15
PROVIDERS: ATTEND Nurse Practitioner Family
DX: E04.2 Nontoxic multinodular goiter (principal)
CPT/HCPCS: 76536

== ENCOUNTER → 2021-12-19 | Outpatient (CLI) | payer MEDICARE, MEDICAID | LOC: CARD 09:30 | PROVIDERS: ATTEND Physician Assistant | DX: I34.0 Nonrheumatic mitral (valve) insufficiency (principal); I11.9 Hypertensive heart disease without heart failure | CPT/HCPCS: 93306 ==

== ENCOUNTER → 2022-01-07 | Outpatient (CLI) | payer MEDICARE, MEDICAID ==
[~2022-01-07] MED LIST changes: +CATHETER FLUSH 10 ML SYR IVP PRN; +REGADENOSON 0.4 MG/5 ML SYR (LEXISCAN) IV ONE
[2022-01-07 12:41] VITALS: BP 147/62
--- NOTE | 2022-01-08 07:42 | Cardiology Stress Test Report ---
Stress Test Report Date of Procedure/Referring: Date of Procedure: Jan 07, 2022 PCP Gautam Farnsworth DO Admitting Physician Admitting Physician: Attending Physician: Maureen Garrett Indications: HTN Baseline Heart Rate: 67 Baseline Blood Pressure: Blood Pressure Systolic: 147 Blood Pressure Diastolic: 62 Baseline Vitals Vital Signs Date Time Temp Pulse Resp B/P (MAP) Pulse Ox O2 Delivery O2 Flow Rate FiO2 01/07/22 12:41 67 147/62 (90) Baseline EKG: Baseline EKG: NSR Summary After explaining the procedure to the patient, she signed a consent and then brought to the stress nuclear laboratory. Patient received 0.4 mg Lexiscan for stress test, ECG, heart rate and blood pressure were monitored continuously. Resting and stress dose of radio tracer were injected, imaging was acquired and reviewed in short axis, horizontal long axis and vertical long axis views. TID: 1.34 SSS: 5 SDS: 4 EF: 72 1. Patient tolerated Lexiscan well 2. Breast attenuation with reversible ischemia involving the mid to apical anterolateral and inferolateral wall 3. Normal left ventricular size with normal contractility, ejection fraction 72% 4. Transient ischemic dilatation 1.34 Copy Copies To 1: GAUTAM FARNSWORTH BASHAR J MD Jan 08, 2022 07:42
== END ==
LOC: CARD 11:30
PROVIDERS: ATTEND Physician Assistant
DX: I10 Essential (primary) hypertension (principal)
CPT/HCPCS: 78452; 93017; A9502

== ENCOUNTER → 2022-01-27 | Outpatient (CLI) | payer MEDICARE, MEDICAID ==
[~2022-01-27] MED LIST changes: -CATHETER FLUSH 10 ML SYR IVP PRN; -REGADENOSON 0.4 MG/5 ML SYR (LEXISCAN) IV ONE
[2022-01-27 08:54] LABS: HEMATOCRIT 44 % (35-52); HEMOGLOBIN 14.4 g/dL (11.5-16.0); MEAN CORPUSCULAR HEMOGLOBIN 32 pg (25-34); MEAN CORPUSCULAR HGB CONC 33 g/dL (32-36); MEAN CORPUSCULAR VOLUME 98 fL (80-99); MEAN PLATELET VOLUME 8.9 fL (9.0-12.2); PLATELET COUNT 286 10^3/uL (130-400); WHITE BLOOD COUNT 6.7 10^3/uL (4.3-11.0)
[2022-01-27 09:19] LABS: BILIRUBIN,TOTAL 0.5 MG/DL (0.1-1.0); CALCIUM 9.8 MG/DL (8.5-10.1); CREATININE SERUM 1.12 MG/DL (0.60-1.30); POTASSIUM 4.4 MMOL/L (3.6-5.0); TOTAL PROTEIN 7.9 GM/DL (6.4-8.2)
== END ==
LOC: LAB 08:33
PROVIDERS: ATTEND Family Medicine
DX: E11.9 Type 2 diabetes mellitus without complications (principal); N28.9 Disorder of kidney and ureter, unspecified; E78.5 Hyperlipidemia, unspecified; I10 Essential (primary) hypertension
CPT/HCPCS: 36415; 80053; 80061; 85027

== ENCOUNTER → 2022-02-09 | Outpatient (CLI) | payer MEDICARE, MEDICAID ==
--- NOTE | 2022-02-09 17:34 | Diagnostic Imaging Report ---
PROCEDURE: US Thyroid. TECHNIQUE: Multiple real-time grayscale images were obtained of the thyroid in various projections. INDICATION: Multinodular goiter COMPARISON: 11/17/2021 FINDINGS: Right thyroid lobe: The right thyroid lobe measures 5.2 x 2.5 x 2.1 cm. In the upper pole of the right thyroid, there is a solid, isoechoic circumscribed nodule with punctate echogenic foci that is stable in size measuring up to 2.5 cm, (TI-RADS 4). Other solid 1.9 cm nodule in the lower pole of the left thyroid is stable and has criteria as TI-RADS 3. Isthmus: The thyroid isthmus measures 0.4 cm and is without nodule. Left thyroid lobe: The left thyroid lobe measures 4.0 x 1.9 x 1.5 cm. The solid isoechoic nodule measuring 2.0 cm has no echogenic foci and is wider than tall, TI-RADS 3. IMPRESSION:The moderately suspicious nodule in the upper pole of the right thyroid is stable since prior examination. If ultrasound-guided aspiration is not considered, then follow-up ultrasound in 12 months is recommended. Dictated by: Dictated on workstation # [id number]
== END ==
LOC: RAD 10:00
PROVIDERS: ATTEND Internal Medicine Endocrinology, Diabetes & Metabolism
DX: E04.2 Nontoxic multinodular goiter (principal)
CPT/HCPCS: 76536

== ENCOUNTER → 2022-03-24 | Outpatient (CLI) | payer MEDICARE, MEDICAID ==
[2022-03-24 09:28] LABS: HEMATOCRIT 45 % (35-52); HEMOGLOBIN 14.7 g/dL (11.5-16.0); MEAN CORPUSCULAR HEMOGLOBIN 32 pg (25-34); MEAN CORPUSCULAR HGB CONC 33 g/dL (32-36); MEAN CORPUSCULAR VOLUME 97 fL (80-99); MEAN PLATELET VOLUME 9.2 fL (9.0-12.2); PLATELET COUNT 251 10^3/uL (130-400); WHITE BLOOD COUNT 7.3 10^3/uL (4.3-11.0)
[2022-03-24 09:54] LABS: ALBUMIN 4.4 GM/DL (3.2-4.5); BILIRUBIN,TOTAL 0.5 MG/DL (0.1-1.0); CALCIUM 9.8 MG/DL (8.5-10.1); CREATININE SERUM 1.26 MG/DL (0.60-1.30); POTASSIUM 4.2 MMOL/L (3.6-5.0)
== END ==
LOC: LAB 08:47
PROVIDERS: ATTEND Family Medicine
DX: E11.9 Type 2 diabetes mellitus without complications (principal); I10 Essential (primary) hypertension; E78.5 Hyperlipidemia, unspecified
CPT/HCPCS: 36415; 80053; 80061; 83036; 85027

== ENCOUNTER → 2022-04-20 | Outpatient (CLI) | payer MEDICARE, MEDICAID ==
[2022-04-20 09:04] LABS: POTASSIUM 4.4 MMOL/L (3.6-5.0)
[2022-04-20 09:05] LABS: CALCIUM 9.8 MG/DL (8.5-10.1)
[2022-04-20 09:09] LABS: CREATININE SERUM 1.12 MG/DL (0.60-1.30)
== END ==
LOC: LAB 08:39
PROVIDERS: ATTEND Family Medicine
DX: E11.9 Type 2 diabetes mellitus without complications (principal); N28.9 Disorder of kidney and ureter, unspecified
CPT/HCPCS: 36415; 80048

== ENCOUNTER → 2022-08-28 | Outpatient (CLI) | payer MEDICARE, MEDICAID | LOC: LAB 09:51 | PROVIDERS: ATTEND Family Medicine | DX: E11.9 Type 2 diabetes mellitus without complications (principal) | CPT/HCPCS: 36415; 83036 ==

== ENCOUNTER → 2022-12-15 | Outpatient (CLI) | payer MEDICARE, MEDICAID ==
[2022-12-15 10:35] LABS: HEMATOCRIT 45 % (35-52); HEMOGLOBIN 14.6 g/dL (11.5-16.0); MEAN CORPUSCULAR HEMOGLOBIN 32 pg (25-34); MEAN CORPUSCULAR HGB CONC 33 g/dL (32-36); MEAN CORPUSCULAR VOLUME 98 fL (80-99); MEAN PLATELET VOLUME 9.2 fL (9.0-12.2); PLATELET COUNT 253 10^3/uL (130-400); WHITE BLOOD COUNT 7.8 10^3/uL (4.3-11.0)
[2022-12-15 10:55] LABS: ALBUMIN 4.3 GM/DL (3.2-4.5); BILIRUBIN,TOTAL 0.6 MG/DL (0.1-1.0); CALCIUM 9.8 MG/DL (8.5-10.1); CREATININE SERUM 1.24 MG/DL (0.60-1.30); POTASSIUM 4.8 MMOL/L (3.6-5.0); TOTAL PROTEIN 7.7 GM/DL (6.4-8.2)
== END ==
LOC: LAB 10:11
PROVIDERS: ATTEND Family Medicine
DX: N28.9 Disorder of kidney and ureter, unspecified (principal); I10 Essential (primary) hypertension; E78.5 Hyperlipidemia, unspecified
CPT/HCPCS: 36415; 80053; 80061; 83036; 85027

== ENCOUNTER → 2023-01-12 | Outpatient (CLI) | payer MEDICARE, MEDICAID ==
[2023-01-12 09:56] LABS: CALCIUM 9.6 MG/DL (8.5-10.1); CREATININE SERUM 1.06 MG/DL (0.60-1.30); POTASSIUM 4.1 MMOL/L (3.6-5.0)
== END ==
LOC: LAB 09:27
PROVIDERS: ATTEND Family Medicine
DX: N28.9 Disorder of kidney and ureter, unspecified (principal)
CPT/HCPCS: 36415; 80048